=== PATIENT | female | born 1990 | race African-American/Black ===

== ENCOUNTER 2021-02-15 15:50 | Day surgery (SDC) | payer OTHER ==
[2021-02-15] MEDS ORDERED: hydrALAZINE 20 MG/ML VIAL SLOW IVP PRN (16:54)
[2021-02-15] MEDS ORDERED: Dextrose 5%-Lactated Ringers 1,000 ML IV SCH (17:00)
[2021-02-15] MEDS ORDERED: Lactated Ringer's 1,000 ML IV SCH (17:00)
[2021-02-15 17:15] LABS: Bilirubin Neg (Negative); Blood, Urine Negative (Negative); Clarity Clear (Clear); Glucose, Urine (Dipstick) Normal (Negative); Ketone, Urine Negative (Negative); Leukocyte Negative (Negative); Nitrite Negative (Negative); Protein, Urine (Dipstick) Negative (Neg-Trace); Urobilinogen Normal mg/dL (Less than 2)
[2021-02-15 17:20] LABS: Urine Culture Reflex No No
[2021-02-15 17:38] LABS: Bacteria/HPF None Seen HPF (None Seen); RBC/HPF None Seen HPF (0-3); Squamous Epithelial 0-3 HPF (0-3); WBC/HPF None Seen HPF (0-3)
[2021-02-15 17:48] VITALS: BMI 36.1
[2021-02-15] MEDS ORDERED: Acetaminophen 500 MG TAB PO SCH (20:00)
== END 2021-02-15 19:15 | disposition home or self-care (01) ==
LOC: CSHLD/OP 15:50
PROVIDERS: ATTEND Family Medicine
DX: O23.593 Infection of other part of genital tract in pregnancy, third trimester (principal); B96.89 Other specified bacterial agents as the cause of diseases classified elsewhere; O47.03 False labor before 37 completed weeks of gestation, third trimester; O99.613 Diseases of the digestive system complicating pregnancy, third trimester; K59.00 Constipation, unspecified; O34.219 Maternal care for unspecified type scar from previous cesarean delivery; Z3A.33 33 weeks gestation of pregnancy
CPT/HCPCS: 51701; 81001; 87480; 87510; 87660; 96360; 96361; 99284

== ENCOUNTER 2021-03-14 09:55 | Day surgery (SDC) | payer OTHER | END 2021-03-14 15:15 | disposition home or self-care (01) | LOC: CSHLD/OP 09:55 | PROVIDERS: ATTEND Family Medicine | DX: O36.5930 Maternal care for other known or suspected poor fetal growth, third trimester, not applicable or unspecified (principal); Z3A.37 37 weeks gestation of pregnancy | CPT/HCPCS: 59025; 76815; 76819; 99282 ==

== ENCOUNTER 2021-03-18 05:11 | Inpatient (IN) | payer OTHER ==
[2021-03-18 05:56] VITALS: BMI 32.3
[2021-03-18] MEDS ORDERED: Bicitra 30 ML UDCUP PO PRN (06:04)
[2021-03-18] MEDS ORDERED: Famotidine/PF 20 mg/2ml Vial SLOW IVP PRN (06:06)
[2021-03-18] MEDS ORDERED: Promethazine HCl 25 MG/ML VIAL IM PRN (06:15)
[2021-03-18] MEDS ORDERED: Lactated Ringer's 1,000 ML IV SCH (06:15)
[2021-03-18] MEDS ORDERED: Ondansetron PF 4 MG/2 ML Vial IVP PRN (06:15)
[2021-03-18] MEDS ORDERED: ceFAZolin 2 GM/Dextrose 50 ML 2 GM in Premix Bag 1 BAG IVPB SCH (06:15)
[2021-03-18] MEDS ORDERED: hydrALAZINE 20 MG/ML VIAL SLOW IVP PRN (06:15)
[2021-03-18 06:33] LABS: Hemoglobin 6.6 g/dL (12.0-15.5); Mean Corpuscular HGB CONC 26.7 g/dL (32.0-36.0); Mean Platelet Volume 9.3 fl (7.4-10.4); Platelet Count 284 10x3/uL (150-450); RBC Distribution Width 21.3 % (11.5-14.5); Red Blood Cell (RBC) Count 4.12 10x6/uL (3.90-5.03); White Blood Cell (WBC) Count 10.6 10x3/uL (3.5-10.5)
[2021-03-18 07:15] LABS: Syphilis Antibody Nonreactive (Nonreactive); Syphilis Antibody Index 0.05 S/CO (<1.00 Non-Reactive)
[2021-03-18 07:17] LABS: Hep B Surf Ag Non-Reactive S/CO (NonReactive)
[2021-03-18 07:23] LABS: HBSAg Index 0.19 S/CO (0-0.99)
[2021-03-18] MEDS ORDERED: diphenhydrAMINE 50 MG/ML VIAL ONE (08:02)
[2021-03-18] MEDS ORDERED: diphenhydrAMINE 25 MG in Sodium Chloride 0.9% 50 ML IVPB ONE (08:15)
[2021-03-18] MEDS ORDERED: Acetaminophen 325 MG TAB PO SCH (08:15)
[2021-03-18] MEDS ORDERED: diphenhydrAMINE 50 MG/ML VIAL IVP SCH (08:30)
[2021-03-18] MEDS: Lactated Ringer's 1,000 ML IV SCH ×2 (18:08→22:00)
[2021-03-18 21:54] LABS: Hemoglobin 9.1 g/dL (12.0-15.5); Platelet Count 237 10x3/uL (150-450)
[2021-03-19] MEDS ORDERED: Famotidine/PF 20 mg/2ml Vial SLOW IVP PRN (12:21)
[2021-03-19] MEDS ORDERED: Bicitra 30 ML UDCUP PO PRN (12:21)
[2021-03-19] MEDS ORDERED: ceFAZolin 2 GM/Dextrose 50 ML 2 GM in Premix Bag 1 BAG IVPB SCH (12:30)
[2021-03-19] MEDS ORDERED: Ondansetron HCl/PF 4 MG/2 ML Vial IVP PRN ×2 (15:24→16:47)
[2021-03-19] MEDS ORDERED: HYDROmorphone 2 MG/ML VIAL SLOW IVP PRN (15:24)
[2021-03-19] MEDS ORDERED: diphenhydrAMINE 50 MG/ML VIAL IVP PRN ×2 (15:24→16:47)
[2021-03-19] MEDS ORDERED: Naloxone HCl 0.4 mg/ml Vial IVP PRN ×4 (15:24→16:47)
[2021-03-19] MEDS ORDERED: Ondansetron PF 4 MG/2 ML Vial IVP PRN ×3 (15:24→21:07)
[2021-03-19] MEDS ORDERED: Promethazine HCl 25 MG SUPP PR PRN ×2 (15:24→16:47)
[2021-03-19] MEDS ORDERED: Meperidine HCl/PF 25 MG/ML VIAL SLOW IVP PRN ×2 (15:24→16:47)
[2021-03-19] MEDS ORDERED: Promethazine HCl 25 MG/ML VIAL IM PRN ×3 (15:24→21:07)
[2021-03-19] MEDS ORDERED: Naloxone HCl 0.4 mg/ml Vial IV PRN ×2 (15:24→16:47)
[2021-03-19] MEDS ORDERED: Fentanyl 100 MCG/2 ML VIAL SLOW IVP PRN ×2 (15:24→16:47)
[2021-03-19] MEDS ORDERED: Hydrocerin (Eucerin) Cream 120 gm Jar TOP PRN ×2 (15:24→16:47)
[2021-03-19] MEDS ORDERED: Ketorolac Tromethamine 30 MG/ML VIAL IVP PRN ×2 (15:24→16:47)
[2021-03-19] MEDS ORDERED: Ketorolac Tromethamine 30 MG/ML VIAL IVP SCH ×2 (15:30→17:00)
[2021-03-19] MEDS ORDERED: Morphine PF 10 MG/10 ML VIAL ONE (15:30)
[2021-03-19] MEDS ORDERED: Communication Order-Pharmacy FS SCH ×2 (15:30→17:00)
[2021-03-19] MEDS ORDERED: Fentanyl 100 MCG/2 ML VIAL ONE (15:30)
[2021-03-19] MEDS ORDERED: Ondansetron PF 4 MG/2 ML Vial ONE (16:18)
[2021-03-19] MEDS ORDERED: Ketorolac Tromethamine 30 MG/ML VIAL ONE (16:18)
[2021-03-19] MEDS ORDERED: Erythromycin Base 0.5% Oint 1 GM TUBE ONE (16:42)
[2021-03-19] MEDS ORDERED: NS w/ Oxytocin 30 units 500 ML ONE (16:57)
[2021-03-19] MEDS ORDERED: Simethicone Chewable 80 MG TAB PO PRN (21:07)
[2021-03-19] MEDS ORDERED: diphenhydrAMINE 25 MG CAP PO PRN (21:07)
[2021-03-19] MEDS ORDERED: Acetaminophen 325 MG TAB PO PRN (21:07)
[2021-03-19] MEDS ORDERED: hydrALAZINE 20 MG/ML VIAL SLOW IVP PRN (21:07)
[2021-03-19] MEDS ORDERED: Boostrix 0.5 ML (Tdap) VIAL IM ONE (21:07)
[2021-03-19] MEDS ORDERED: Docusate 100 MG CAP PO SCH (21:45)
[2021-03-19] MEDS ORDERED: Ferrous Sulfate 325 MG TAB PO SCH (21:45)
[2021-03-20 04:47] LABS: Hemoglobin 8.3 g/dL (12.0-15.5); Mean Corpuscular HGB CONC 28.7 g/dL (32.0-36.0); Mean Corpuscular Hemoglobin 19.3 pg (27.0-33.0); Mean Corpuscular Volume 67.4 fl (81.6-98.3); Mean Platelet Volume 9.8 fl (7.4-10.4); Platelet Count 262 10x3/uL (150-450); RBC Distribution Width 27.1 % (11.5-14.5); Red Blood Cell (RBC) Count 4.29 10x6/uL (3.90-5.03); White Blood Cell (WBC) Count 18.5 10x3/uL (3.5-10.5)
[2021-03-20] MEDS ORDERED: HYDROcodone/Acetaminophen 5/325 mg Tablet PO PRN (05:00)
[2021-03-20] MEDS: Ferrous Sulfate 325 MG TAB PO SCH ×2 (08:07→21:38)
[2021-03-20] MEDS: Prenatal Vitamin 1 TAB PO SCH (08:07)
[2021-03-20] MEDS: Docusate 100 MG CAP PO SCH ×2 (08:07→21:38)
[2021-03-20] MEDS: HYDROcodone/Acetaminophen 5/325 mg Tablet PO PRN ×2 (11:38→17:16)
[2021-03-20] MEDS: Ibuprofen 800 MG TAB PO SCH (21:38)
[2021-03-21] MEDS: Ibuprofen 800 MG TAB PO SCH (06:16)
[2021-03-21] MEDS: Prenatal Vitamin 1 TAB PO SCH (08:44)
[2021-03-21] MEDS: Docusate 100 MG CAP PO SCH (08:44)
[2021-03-21] MEDS: Ferrous Sulfate 325 MG TAB PO SCH (08:44)
[2021-03-21 11:33] VITALS: BP 98/55; TEMP 98
[2021-03-21] MEDS ORDERED: Lidocaine 1% MPF 2 ML VIAL ONE (11:36)
== END 2021-03-21 14:40 | disposition home or self-care (01) | DRG 788 ==
LOC: CSHLD 05:11 → CSHANTE 15:15 → CSHPP 03-19 20:22
PROVIDERS: ADMIT Family Medicine; ATTEND Family Medicine
PROC: 10D00Z1 Extraction of Products of Conception, Low, Open Approach (ICD-10-PCS; principal; 2021-03-19)
PROC: 30233N1 Transfusion of Nonautologous Red Blood Cells into Peripheral Vein, Percutaneous Approach (ICD-10-PCS; 2021-03-19)
DX: O34.211 Maternal care for low transverse scar from previous cesarean delivery (principal); Z3A.38 38 weeks gestation of pregnancy; Z37.0 Single live birth
CPT/HCPCS: 36415; 36430; 51702; 85027; 86780; 86850; 86900; 86901; 87340; J1200; J1885; J2274; J2405; J2550; J3010; P9016

== ENCOUNTER 2021-08-21 18:59 | Emergency (ER) | payer OTHER ==
[2021-08-21 20:51] LABS: #Eosinphils 0.2 10x3/uL (0.0-0.5); #Monocytes 0.5 10x3/uL (0.0-1.1); #Neutrophils 5.6 10x3/uL (1.5-8.4); %Basophils 0.4 % (0.0-2.0); %Eosinophils 1.8 % (0.0-6.0); %Lymphocytes 39.3 % (18.0-47.0); %Monocytes 4.8 % (0.0-10.0); %Neutrophils 53.5 % (40.0-75.0); Hemoglobin 11.8 g/dL (12.0-15.5); Mean Corpuscular HGB CONC 33.1 g/dL (32.0-36.0); Mean Corpuscular Hemoglobin 26.3 pg (27.0-33.0); Mean Corpuscular Volume 79.5 fl (81.6-98.3); Mean Platelet Volume 9.5 fl (7.4-10.4); Platelet Count 311 10x3/uL (150-450); RBC Distribution Width 17.7 % (11.5-14.5); Red Blood Cell (RBC) Count 4.48 10x6/uL (3.90-5.03); White Blood Cell (WBC) Count 10.5 10x3/uL (3.5-10.5)
[2021-08-21 21:06] LABS: ALT (SGPT) 27 U/L (8-55); AST (SGOT) 21 U/L (5-34); Albumin 4.1 g/dL (3.5-5.0); Alkaline Phosphatase 52 U/L (40-110); Anion Gap 12 mmol/L (10-20); BUN (Urea Nitrogen) 6 mg/dL (7.0-18.7); Bilirubin, Total 0.2 mg/dL (0.2-1.2); Calc. Creatinine Clearance 0 mL/min (70-130); Calcium 9.5 mg/dL (7.8-10.44); Carbon Dioxide 25 mmol/L (22-29); Chloride 102 mmol/L (98-107); Globulin 3.6 g/dL (2.4-3.5); Glucose 80 mg/dL (70-105); Potassium 3.3 mmol/L (3.5-5.1); Protein, Total 7.7 g/dL (6.0-8.3); Sodium 136 mmol/L (136-145)
[2021-08-21 21:12] LABS: Bilirubin Neg (Negative); Blood, Urine Negative (Negative); Clarity Slightly Cloudy (Clear); Glucose, Urine (Dipstick) Normal (Negative); Ketone, Urine Negative (Negative); Leukocyte 500 (Negative); Nitrite Negative (Negative); Protein, Urine (Dipstick) 15 mg/dl (Neg-Trace); Specific Gravity, Urine 1.015 (1.002-1.036)
[2021-08-21 21:18] LABS: Bacteria/HPF 1+ HPF (None Seen); RBC/HPF 0-3 HPF (0-3)
== END 2021-08-22 00:04 | disposition home or self-care (01) ==
LOC: CSHERS 18:59
DX: O99.891 Other specified diseases and conditions complicating pregnancy (principal); R10.2 Pelvic and perineal pain; Z3A.16 16 weeks gestation of pregnancy
CPT/HCPCS: 76856; 80053; 81003; 81015; 85025; 86900; 86901; 87086; 93976

== ENCOUNTER 2021-12-25 12:02 | Day surgery (SDC) | payer OTHER ==
[2021-12-25 12:40] VITALS: BMI 35.6
[2021-12-25] MEDS ORDERED: hydrALAZINE 20 MG/ML VIAL SLOW IVP PRN (13:22)
[2021-12-25 14:20] LABS: Bilirubin Neg (Negative); Blood, Urine Negative (Negative); Clarity Clear (Clear); Glucose, Urine (Dipstick) Normal (Negative); Ketone, Urine Negative (Negative); Leukocyte Negative (Negative); Nitrite Negative (Negative); Protein, Urine (Dipstick) Negative (Neg-Trace); Specific Gravity, Urine 1.015 (1.005-1.030); Urobilinogen Normal mg/dL (Less than 2)
[2021-12-25 14:26] LABS: Urine Culture Reflex No No
[2021-12-25 14:30] LABS: Bacteria/HPF None Seen HPF (None Seen); RBC/HPF 0-3 HPF (0-3); Squamous Epithelial 0-3 HPF (0-3); WBC/HPF 0-3 HPF (0-3)
[2021-12-25] MEDS ORDERED: Acetaminophen 500 MG TAB PO SCH (14:45)
== END 2021-12-25 15:21 | disposition home or self-care (01) ==
LOC: CSHLD/OP 12:02
PROVIDERS: ATTEND Student in an Organized Health Care Education/Training Program
DX: O26.893 Other specified pregnancy related conditions, third trimester (principal); R10.9 Unspecified abdominal pain; Z3A.31 31 weeks gestation of pregnancy; Z87.59 Personal history of other complications of pregnancy, childbirth and the puerperium
CPT/HCPCS: 81001; 99283

== ENCOUNTER 2022-02-07 07:30 | Inpatient (IN) | payer OTHER ==
[2022-02-06 10:58] LABS: Hemoglobin 12.8 g/dL (12.0-15.5); Platelet Count 249 10x3/uL (150-450)
[2022-02-06 11:29] LABS: HBSAg Index 0.13 S/CO (0-0.99); HIV (1/2) Antibody/Antigen Non-Reactive (NonReactive); HIV 1/2 INDEX 0.07 S/CO (<1.00); Hep B Surf Ag Non-Reactive S/CO (NonReactive); Syphilis Antibody Nonreactive (Nonreactive); Syphilis Antibody Index 0.04 S/CO (<1.00 Non-Reactive)
[2022-02-06 12:03] LABS: SARS-CoV-2 NAA Rapid Test Not Detected (NotDetected)
[2022-02-07] MEDS ORDERED: hydrALAZINE 20 MG/ML VIAL SLOW IVP PRN ×2 (09:55→15:19)
[2022-02-07] MEDS ORDERED: Ondansetron PF 4 MG/2 ML Vial IVP PRN ×4 (09:55→15:19)
[2022-02-07] MEDS ORDERED: Promethazine HCl 25 MG/ML VIAL IM PRN ×4 (09:55→15:19)
[2022-02-07] MEDS ORDERED: Famotidine/PF 20 mg/2ml Vial SLOW IVP PRN (09:55)
[2022-02-07] MEDS ORDERED: Bicitra 30 ML UDCUP PO PRN (09:55)
[2022-02-07] MEDS ORDERED: CEFAZOLIN 2 GM in Sodium Chloride 0.9% 100 ML IVPB SCH (10:00)
[2022-02-07] MEDS ORDERED: Lactated Ringer's 1,000 ML IV SCH (10:00)
[2022-02-07] MEDS ORDERED: Misoprostol 200 MCG TAB ONE (11:13)
[2022-02-07] MEDS ORDERED: CEFAZOLIN 2 GM VIAL ONE (11:13)
[2022-02-07] MEDS ORDERED: Methylergonovine 0.2 MG/ML VIAL ONE (11:14)
[2022-02-07] MEDS ORDERED: Carboprost 250 MCG/ML AMP ONE (11:14)
[2022-02-07] MEDS ORDERED: Morphine PF 10 MG/10 ML VIAL ONE (11:18)
[2022-02-07] MEDS ORDERED: Phenylephrine 40 MG/NS 250 ML 250 ML ONE (11:19)
[2022-02-07] MEDS ORDERED: Fentanyl 100 MCG/2 ML VIAL ONE (11:19)
[2022-02-07] MEDS ORDERED: Dexamethasone 4 mg/ml Vial ONE (11:19)
[2022-02-07] MEDS ORDERED: Ondansetron PF 4 MG/2 ML Vial ONE (11:19)
[2022-02-07] MEDS ORDERED: Oxytocin 10 UNITS/ML VIAL ONE (11:22)
[2022-02-07] MEDS ORDERED: Moisturizing Cream (Eucerin) 113 GM JAR TOP PRN ×2 (11:39→12:57)
[2022-02-07] MEDS ORDERED: Ondansetron HCl/PF 4 MG/2 ML Vial IVP PRN (11:39)
[2022-02-07] MEDS ORDERED: Fentanyl 100 MCG/2 ML VIAL SLOW IVP PRN ×2 (11:39→12:57)
[2022-02-07] MEDS ORDERED: Ketorolac Tromethamine 30 MG/ML VIAL IVP PRN ×2 (11:39→12:57)
[2022-02-07] MEDS ORDERED: Meperidine HCl/PF 25 MG/ML VIAL SLOW IVP PRN (11:39)
[2022-02-07] MEDS ORDERED: Naloxone HCl 0.4 mg/ml Vial IVP PRN ×4 (11:39→12:57)
[2022-02-07] MEDS ORDERED: HYDROmorphone 2 MG/ML VIAL SLOW IVP PRN (11:39)
[2022-02-07] MEDS ORDERED: diphenhydrAMINE 50 MG/ML VIAL IVP PRN (11:39)
[2022-02-07] MEDS ORDERED: Naloxone HCl 0.4 mg/ml Vial IV PRN ×2 (11:39→12:57)
[2022-02-07] MEDS ORDERED: Promethazine HCl 25 MG SUPP PR PRN ×2 (11:39→12:57)
[2022-02-07] MEDS ORDERED: Ketorolac Tromethamine 30 MG/ML VIAL IVP SCH (11:45)
[2022-02-07] MEDS ORDERED: Communication Order-Pharmacy FS SCH ×2 (11:45→13:00)
[2022-02-07] MEDS: diphenhydrAMINE 50 MG/ML VIAL IVP PRN ×2 (14:37→19:08)
[2022-02-07 14:49] VITALS: BMI 34.3
[2022-02-07] MEDS ORDERED: Bisacodyl 10 MG SUPP PR PRN (15:19)
[2022-02-07] MEDS ORDERED: diphenhydrAMINE 25 MG CAP PO PRN (15:19)
[2022-02-07] MEDS ORDERED: Lanolin Ointment 7 GM TUBE TOP PRN (15:19)
[2022-02-07] MEDS ORDERED: Simethicone Chewable 80 MG TAB PO PRN (15:19)
[2022-02-07] MEDS ORDERED: Boostrix 0.5 ML (Tdap) VIAL (>/=7 yrs of age) IM ONE (15:19)
[2022-02-07] MEDS ORDERED: Acetaminophen 325 MG TAB PO PRN (15:19)
[2022-02-07 15:44] LABS: Amphetamine Not Detected (NotDetected); Barbiturates Screen Not Detected (NotDetected); Benzodiazepine Screen Not Detected (NotDetected); Cocaine Metabolite Screen Not Detected (NotDetected); Methadone Not Detected (NotDetected); Methamphetamine Not Detected (NotDetected); Opiate Screen Not Detected (NotDetected); Oxycodone Screen Not Detected (NotDetected); Phencyclidine (PCP) Not Detected (NotDetected); THC/Cannabinoid Screen Not Detected (NotDetected); Tricyclic Screen Not Detected (NotDetected)
[2022-02-07] MEDS: Docusate 100 MG CAP PO SCH (21:36)
[2022-02-07] MEDS: Ferrous Sulfate 325 MG TAB PO SCH (23:25)
[2022-02-08 04:37] LABS: Hemoglobin 11.1 g/dL (12.0-15.5); Mean Corpuscular HGB CONC 34.2 g/dL (32.0-36.0); Mean Corpuscular Hemoglobin 27.3 pg (27.0-33.0); Mean Platelet Volume 10.7 fl (7.4-10.4); Platelet Count 265 10x3/uL (150-450); RBC Distribution Width 20.6 % (11.5-14.5); Red Blood Cell (RBC) Count 4.06 10x6/uL (3.90-5.03); White Blood Cell (WBC) Count 12.6 10x3/uL (3.5-10.5)
[2022-02-08] MEDS: HYDROcodone/Acetaminophen 5/325 mg Tablet PO PRN ×3 (08:53→20:44)
[2022-02-08] MEDS: Docusate 100 MG CAP PO SCH ×2 (08:53→21:21)
[2022-02-08] MEDS: Prenatal Vitamin 1 TAB PO SCH (08:53)
[2022-02-08] MEDS: Ferrous Sulfate 325 MG TAB PO SCH ×2 (08:54→21:52)
[2022-02-08] MEDS: Ibuprofen 800 MG TAB PO SCH ×2 (13:25→21:21)
[2022-02-09] MEDS: Ibuprofen 800 MG TAB PO SCH ×2 (05:53→13:05)
[2022-02-09] MEDS: Ferrous Sulfate 325 MG TAB PO SCH (07:10)
[2022-02-09 07:43] VITALS: BP 100/67; TEMP 98.1
[2022-02-09] MEDS: Prenatal Vitamin 1 TAB PO SCH (08:45)
[2022-02-09] MEDS: Docusate 100 MG CAP PO SCH (08:45)
[2022-02-09] MEDS: HYDROcodone/Acetaminophen 5/325 mg Tablet PO PRN (08:45)
== END 2022-02-09 15:14 | disposition home or self-care (01) | DRG 784 ==
LOC: CSHLD 10:24 → CSHPP 15:34
PROVIDERS: ADMIT Student in an Organized Health Care Education/Training Program; ATTEND Student in an Organized Health Care Education/Training Program
PROC: 10D00Z1 Extraction of Products of Conception, Low, Open Approach (ICD-10-PCS; principal; 2022-02-07)
PROC: 0UT70ZZ Resection of Bilateral Fallopian Tubes, Open Approach (ICD-10-PCS; 2022-02-07)
DX: O34.211 Maternal care for low transverse scar from previous cesarean delivery (principal); N13.30 Unspecified hydronephrosis; Q60.0 Renal agenesis, unilateral; Z20.822 Contact with and (suspected) exposure to COVID-19; Z3A.39 39 weeks gestation of pregnancy; Z37.0 Single live birth; F32.A Depression, unspecified; O99.344 Other mental disorders complicating childbirth; O99.02 Anemia complicating childbirth; Z79.899 Other long term (current) drug therapy; O99.892 Other specified diseases and conditions complicating childbirth; D50.9 Iron deficiency anemia, unspecified; F41.9 Anxiety disorder, unspecified
CPT/HCPCS: 36415; 51702; 80306; 85014; 85018; 85027; 85049; 86780; 86850; 86900; 86901; 87340; 87389; 88302; J1100; J1200; J1885; J2274; J2310; J2405; J2590; J3010; J3490; S0028; U0002

== ENCOUNTER 2023-11-23 11:10 | Emergency (ER) | payer OTHER, SELFPAY ==
[2023-11-23 12:48] LABS: #Basophils 0.04 10x3/uL (0.0-0.2); #Eosinphils 0.19 10x3/uL (0.0-0.5); #Monocytes 0.42 10x3/uL (0.0-1.1); #Neutrophils 4.88 10x3/uL (1.5-8.4); %Basophils 0.5 % (0.0-2.0); %Eosinophils 2.2 % (0.0-6.0); %Lymphocytes 36.7 % (18.0-47.0); %Monocytes 4.8 % (0.0-10.0); %Neutrophils 55.5 % (40.0-75.0); Critical Call w/ Read Back ERS.CH3@1248; Hematocrit 20.4 % (34.9-44.5); Hemoglobin 5.2 g/dL (12.0-15.5); Mean Corpuscular HGB CONC 25.5 g/dL (32.0-36.0); Mean Corpuscular Hemoglobin 14.9 pg (27.0-33.0); Mean Corpuscular Volume 58.5 fL (81.6-98.3); Mean Platelet Volume 9.7 fL (7.4-10.4); Platelet Count 396 10x3/uL (150-450); RBC Distribution Width 19.9 % (11.5-14.5); Red Blood Cell (RBC) Count 3.49 10x6/uL (3.90-5.03); White Blood Cell (WBC) Count 8.8 10x3/uL (3.5-10.5)
[2023-11-23 13:11] LABS: ALT (SGPT) 9 U/L (8-55); AST (SGOT) 13 U/L (5-34); Albumin 3.9 g/dL (3.5-5.0); Alkaline Phosphatase 42 U/L (40-110); Anion Gap 11 mmol/L (10-20); BUN (Urea Nitrogen) 6 mg/dL (7.0-18.7); Bilirubin, Total 0.2 mg/dL (0.2-1.2); Calc. Creatinine Clearance 0 mL/min (70-130); Calcium 8.8 mg/dL (7.8-10.44); Carbon Dioxide 25 mmol/L (22-29); Chloride 106 mmol/L (98-107); Estimated GFR 104; Globulin 3.1 g/dL (2.4-3.5); Glucose 84 mg/dL (70-105); Potassium 3.4 mmol/L (3.5-5.1); Sodium 139 mmol/L (136-145)
[2023-11-23 13:38] LABS: Iron Less than 8 ug/dL (50-170)
[2023-11-23 14:57] LABS: Microcytosis MARKED = >30 cells (100X) (0-5/hpf)
[2023-11-23 14:58] LABS: Hypochromia MARKED = >30 cells (100X) (0-5/hpf); Platelet Adequacy Comment Appears Adequate
[2023-11-23] MEDS ORDERED: Acetaminophen 500 MG TAB ONE (15:50)
[2023-11-23 17:46] LABS: #Basophils 0.06 10x3/uL (0.0-0.2); #Eosinphils 0.26 10x3/uL (0.0-0.5); #Neutrophils 6.82 10x3/uL (1.5-8.4); %Basophils 0.5 % (0.0-2.0); %Eosinophils 2.3 % (0.0-6.0); %Lymphocytes 31.6 % (18.0-47.0); %Monocytes 6.1 % (0.0-10.0); %Neutrophils 59.2 % (40.0-75.0); Hematocrit 26.4 % (34.9-44.5); Hemoglobin 7.6 g/dL (12.0-15.5); Mean Corpuscular HGB CONC 28.8 g/dL (32.0-36.0); Mean Corpuscular Hemoglobin 18.3 pg (27.0-33.0); Mean Corpuscular Volume 63.6 fL (81.6-98.3); Mean Platelet Volume 8.9 fL (7.4-10.4); Platelet Count 390 10x3/uL (150-450); RBC Distribution Width 25.3 % (11.5-14.5); Red Blood Cell (RBC) Count 4.15 10x6/uL (3.90-5.03); White Blood Cell (WBC) Count 11.5 10x3/uL (3.5-10.5)
== END 2023-11-23 17:45 | disposition home or self-care (01) ==
LOC: CSHERS 11:10
DX: D64.9 Anemia, unspecified (principal)
CPT/HCPCS: 36415; 36430; 80053; 83540; 85025; 86850; 86900; 86901; 93005; 93010; P9016